=== PATIENT | female | born 1975 | race Caucasian/White ===

== ENCOUNTER → 2021-09-21 15:18 | Outpatient (BNVA) | payer OTHER, SELFPAY | PROVIDERS: Family Provider Family Medicine; Visit Provider Obstetrics & Gynecology | DX: Z01.419 Encounter for gynecological examination (general) (routine) without abnormal findings (principal) | CPT/HCPCS: 87624 ==

== ENCOUNTER 2022-02-16 14:16 | Emergency (ER) | payer OTHER, SELFPAY ==
[2022-02-16 14:23] VITALS: BMI 39.9
[2022-02-16 14:32] VITALS: BP 152/91; PULSE 87; RESP 18; TEMP 37.1; O2SAT 96
--- NOTE | 2022-02-16 14:37 | ED_ITS ---
HPI - General Adult General: Chief complaint: Skin/Abscess/Foreign Body Stated complaint: sent by pasha for CT Time Seen by Provider: 02/16/22 14:36 History of Present Illness: Patient is a 46-year-old male with a history of hysterectomy, eosinophilic colitis presents the emergency room for concerns of perirectal abscess/mass x 1 week. Patient initially went to see Dr. Delacruz in the office for concerns of vaginal protrusion and mass which she has had from 1 week ago. She first noticed the bump after wiping However, Dr. Delacruz evaluated the patient, she has concerned that this may be a perirectal abscess. Patient was then told to come to the emergency room for further evaluation of symptoms. Patient denies any fever/chills, cough, runny nose sore throat, abdom inal pain. Since patient's diagnosis of eosinophilic colitis, she has had significant diarrhea. Patient follows with [facility]. Onset:1 week ago Duration: 1 week Location:home Severity:moderate Associated symptoms: Deny chest pain, dyspnea, nausea, rash, palpitations or vomiting Review of Systems Const: Denies: fever(s) or chills Eyes: Denies: change in vision ENMT: Denies: mouth pain Card: Denies: chest pain or palpitations Resp: Denies: dyspnea or non-productive cough GI: Reports: other (+gross mass/lesion); Denies: abdominal pain, nausea, vomiting or diarrhea : Denies: dysuria Musc: Denies: extremity pain Skin/Breast: Denies: rash or new lesions Neuro: Denies: weakness in extremities Psych: Reports: other (Normal mood) Grayson/Lymph: Denies: easy bruising PFSH ED PFSH: Medical History No pertinent past medical history neghx: htn, dm, thyroid, dvt/pe PCP: Katheryn Van Surgical History History of arthroscopy 2017---bilateral meniscus repair History of foot surgery 2019--lisfranks fusion History of hysterectomy 2014 bilateral oophorectomy Family History Mother Diabetes Hypertension Father Heart disease Hypercholesteremia Hypertension Daughter Thyroid disease Denies family history of Colon cancer Ovarian cancer Breast cancer Uterine cancer Stroke Social History Smoking and tobacco status: never smoked Physical Exam Const: COMMON NORMALS: alert HENMT: COMMON NORMALS: atraumatic HEAD & SCALP: atraumatic MOUTH: moist mucous membranes not abnormal Eye: COMMON NORMALS: EOMs intact bilaterally and conjunctivae normal CONJUNCTIVA: Yes conjunctivae normal Neck/C-Spine: COMMON NORMALS: full ROM and supple Resp: COMMON NORMALS: normal respiratory effort and clear to auscultation bilaterally AUSCULTATION: clear to auscultation bilaterally Cardio: COMMON NORMALS: regular rate RATE: regular rate GI: COMMON NORMALS: Soft to palpation and non-tender PALPATION: Yes Soft to palpation : OTHER: Exam supervised by Alejandrina: Mild nondistent induration at the vaginal opening close to the anal opening Extremity: COMMON NORMALS: full ROM Neuro: SENSORIUM/ORIENTATION: Yes alert MOTOR EXAM: No Abnormal motor strength present and Other motor observations present (no focal motor deficits) Psych: COMMON NORMALS: speech normal SPEECH: Yes normal speech MOOD & AFFECT: Yes euthymic mood Course Vital Signs: Vital signs: Vital Signs Temperature 98.8 F 02/16/22 14:32 Pulse Rate 87 02/16/22 14:32 Respiratory Rate 18 02/16/22 14:32 Blood Pressure 152/91 02/16/22 14:32 Pulse Oximetry 96 02/16/22 14:32 Oxygen Delivery Me thod 02/16/22 14:32 MDM - General Adult Medical Decision Making Patient is a 46-year-old male with a history of hysterectomy, eosinophilic colitis presents the emergency room for concerns of perirectal abscess/mass x 1 week. On exam, patient was found to have mildly indurated lesion at the vaginal opening in the anal area. Patient has white count 13.[address] showed 28 x 16 x 28 mm lesion in the groin area. I discussed this extensively With Dr. Miranda who recommended antibiotics at this time since patient has had I&D in Dr. Delacruz's office. Dr. Miranda recommend sending patient home with Augmentin and close serial follow-up. I have given patient follow up with our assistant case manager to be seen by our outpatient Dr. Miranda for reassessment of wound. Patient aware of a call from our assistant case manager to schedule for appointment(s) and verbalizes understanding of the importance of following up. Rx augmentin for groin abscess Disposition: Discharge. Patient counseled regarding diagnostic impression, treatment plan. Patient given ED strict return precautions to return for continuation, worsening, or development of new symptoms. Instructed to f/u w/ PC P and Dr. Miranda regarding symptoms today. Patient verbalized understanding. Lab Data : 02/16/22 15:12 02/16/22 15:12 Radiology Impressions Abdomen/Pelvis CT 02/16/22 14:36 IMPRESSION: 1. Discrete fluid collection with enhancing rim in the perineal region, suspicious for an abscess measuring 28 x 16 x 28 mm. No soft tissue gas. Please see discussion above. 2. Nonspecific inguinal lymph nodes measuring up to 12 mm which may be reactive. Laboratory Results WBC 13.2 10^3/uL (4.0-10.0) H 02/16/22 15:12 RBC 4.17 10^6/uL (4.1-5.3) 02/16/22 15:12 Hgb 12.7 g/dL (11.5-15.3) 02/16/22 15:12 Hct 37.8 % (37.0-47.0) 02/16/22 15:12 MCV 90.6 fl (81-99) 02/16/22 15:12 MCH 30.5 pg (28.0-34.0) 02/16/22 15:12 MCHC 33.6 g/dL (30.0-36.0) 02/16/22 15:12 RDW 12.5 % (12.1-15.1) 02/16/22 15:12 Plt Count 362 10^3/cmm (130-400) 02/16/22 15:12 MPV 10.2 fL (7.4-10.4) 02/16/22 15:12 Neut % (Auto) 67.2 % 02/16/22 15:12 Lymph % (Auto) 23.4 % 02/16/22 15:12 Forrest % (Auto) 6.2 % 02/16/22 15:12 Eos % (Auto) 2.5 % 02/16/22 15:12 Baso % (Auto) 0.3 % 02/16/22 15:12 Neut # (Auto) 8.86 10^3/uL (1.8-7.7) H 02/16/22 15:12 Lymph # (Auto) 3.1 10^3/uL (0.8-4.8) 02/16/22 15:12 Forrest # (Auto) 0.8 10^3/uL (0.2-0.9) 02/16/22 15:12 Eos # (Auto) 0.3 10^3/uL (0.0-0.8) 02/16/22 15:12 Baso # (Auto) 0.0 10^3/uL (0.0-0.1) 02/16/22 15:12 Nucleated RBC % (auto) 0 % 02/16/22 15:12 Nucleated RBCs # 0.0 /100WBC 02/16/22 15:12 PT 12.70 SECONDS (12.1-14.9) 02/16/22 15:12 INR 0.92 (0.8-1.2) 02/16/22 15:12 APTT 29.6 SECONDS (23.9-36.7) 02/16/22 15:12 Sodium 134 mmol/L (136-145) L 02/16/22 15:12 Potassium 3.7 mmol/L (3.5-5.1) 02/16/22 15:12 Chloride 99 mmol/L (98-107) 02/16/22 15:12 Carbon Dioxide 25 mmol/L (22-29) 02/16/22 15:12 Anion Gap 13.7 (5-19) 02/16/22 15:12 BUN 15 mg/dL (6-20) 02/16/22 15:12 Creatinine 0.7 mg/dL (0.5-0.9) 02/16/22 15:12 GFR Calculation 90.5 mL/min (90-130) 02/16/22 15:12 Glucose 97 mg/dL (65-115) 02/16/22 15:12 Calculated Osmolality 279 mOsm/kg (285-295) L 02/16/22 15:12 Calcium 9.4 mg/dL (8.5-10.5) 02/16/22 15:12 C-Reactive Protein 24.8 mg/L (0.0-4.9) H 02/16/22 15:12 Imaging Data Other Imaging: Radiologist's impression: [facility] [address] [place] [address] CT Scan Report Signed Patient: Maribel Moore Unit #: [id number] : 1975 Age/Sex: 46 / F ADM Date: 02/16/22 Loc: ER Room/Bed: Attending Dr: Ordering Provider/Ordering MD: Peter Christiansen MD Date of Service: 02/16/22 Procedure(s): CT abdomen pelvis w con* [id number] Accession Number(s): [id number] Report Number: [id number] PROCEDURE INFORMATION: Exam: CT Abdomen And Pelvis With Contrast Exam date and time: 02/16/2022 3:15 PM Age: 46 years old Clinical indication: Mass, lump, or swelling; Other: Perineal; Additional info: Pelvic mass TECHNIQUE: Imaging protocol: Computed tomography of the abdomen and pelvis with contrast. Radiation optimization: All CT scans at this facility use at least one of these dose optimization techniques: automated exposure control; mA and/or kV adjustment per patient size (includes targeted exams where dose is matched to clinical indication); or iterative reconstruction. Contrast material: OMNIPAQUE 350; Contrast volume: 80 ml; Contrast route: INTRAVENOUS (IV);? COMPARISON: pelvic limited [id number] 02/16/2022 1:51 PM RADIATION DOSE METRICS: Total DLP (mGy-cm): 1153.47 FINDINGS: Liver: Normal. No mass. Gallbladder and bile ducts: Normal. No calcified stones. No ductal dilation. Pancreas: Normal. No ductal dilation. Spleen: Normal. No splenomegaly. Adrenal glands: Normal. No mass. Kidneys and ureters: Minimal fullness of right renal pelvis, likely extrarenal renal pelvis variant. No obstructing calculi or perinephric collection. Stomach and bowel: Unremarkable. No obstruction. No mucosal thickening. Appendix: No evidence of appendicitis. Intraperitoneal space: See Reproductive finding. No free air or ascites. Vasculature: No abdominal aortic aneurysm.? Lymph nodes: Nonspecific right inguinal lymph node measuring 12 mm short axis. A few other bilateral nonenlarged inguinal lymph nodes are also present. No enlarged lymph nodes. Urinary bladder: Grossly unremarkable mildly distended urinary bladder. Reproductive: Absent uterus. No cul-de-sac fluid or other peritoneal/retroperitoneal fluid collection. No adnexal region masses. Bones/joints: See Soft tissues finding. Soft tissues: Correlation with transperineal ultrasound exam same day which demonstrated a somewhat discrete area of heterogeneous hypoechogenicity in the midline which is probably adjacent and slightly anterior to the anal region,. An area of no density with enhancing rim is seen on this CT exam in the perineal region slightly anterior to the anal region, measuring 28 mm AP, 16 mm transverse and 28 mm craniocaudad best seen on coronal series 5, image 38 and axial series 3, image 97. There is mild increased soft tissue enhancement adjacent to it suggesting inflammatory response. Most likely this is a perineal abscess. A small hematoma may have similar appearance. No obvious fistulous tract communicating through the skin surface on this exam with limited resolution. No obvious superior extension into the perirectal area or ischial rectal fossa. Communication through the inferior vaginal canal would be difficult to exclude in this setting however.? No soft tissue gas. CT/CT abdomen pelvis w con* [id number] IMPRESSION: 1. Discrete fluid collection with enhancing rim in the perineal region, suspicious for an abscess measuring 28 x 16 x 28 mm.? No soft tissue gas.? Please see discussion above. 2. Nonspecific inguinal lymph nodes measuring up to 12 mm which may be reactive. ? Dictated By: Toby Hoang MD Signed By: Toby Hoang MD Signed Date/Time: 02/16/22 1551 DD/ 1515 Discharge Plan Discharge Patient Disposition: Home Clinical Impression: Abscess of groin Condition: Stable Prescriptions: New amoxicillin-pot clavulanate 875-125 mg tablet 1 tab PO BID 10 Days Qty: 20 0RF No Action cetirizine [Zyrtec] 10 mg tablet 10 mg PO DAILY PRN (Reason: Allergy Symptoms) cholecalciferol (vitamin D3) [Dialyvite Vitamin D] 125 mcg (5,000 unit) capsule 125 mcg PO DAILY bupropion HCl 300 mg tablet extended release 24 hr 300 mg PO DAILY Discharge Orders: Discharge ED (Routine); Ordered 02/16/22 Ordered By: Peter Christiansen Referrals: Mirella Delacruz MD [Primary Care Provider] - Discharge Diet: Advance as tolerated Discharge Activity: Increase activity as tolerated Patient Instructions: Abscess (ED) Activity Restrictions/Additional Instructions: Please take your antibiotics as instructed. Watch out for signs of skin changes/redness, mouth redeness or swelling, nausea/vomiting, diarrhea, blood in the urine or any new or concering complaints. Our assistant case manager will have you follow-up with Dr. Miranda in the next few days for reevaluation fo the lesion. You would be expected to have a phone call with our assistant case manager who will put you on the schedule. You can expect a call from us in the next 2-3 days. If you don't hear from us, call us back in the emergency room at [phone]. 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
[2022-02-16] MEDS: iohexol 350 mg/mL 100 mL Btl IV (15:25)
[2022-02-16 15:33] LABS: Basophils % 0.3 %; Eosinophils # 0.3 10^3/uL (0.0-0.8); Eosinophils % 2.5 %; Hematocrit 37.8 % (37.0-47.0); Hemoglobin 12.7 g/dL (11.5-15.3); Lymphocytes # 3.1 10^3/uL (0.8-4.8); Lymphocytes % 23.4 %; Mean Corpuscular HGB Conc 33.6 g/dL (30.0-36.0); Mean Corpuscular Hemoglobin 30.5 pg (28.0-34.0); Mean Corpuscular Volume 90.6 fl (81-99); Mean Platelet Volume 10.2 fL (7.4-10.4); Monocytes # 0.8 10^3/uL (0.2-0.9); Monocytes % 6.2 %; Neutrophils # 8.86 10^3/uL (1.8-7.7); Neutrophils % 67.2 %; Nucleated Red Blood Cells % 0 %; Platelet Count 362 10^3/cmm (130-400); Red Blood Count 4.17 10^6/uL (4.1-5.3); Red Cell Distribution Width 12.5 % (12.1-15.1); White Blood Count 13.2 10^3/uL (4.0-10.0)
[2022-02-16 16:04] LABS: INR 0.92 (0.8-1.2)
[2022-02-16 16:05] LABS: Partial Thromboplastin Time 29.6 SECONDS (23.9-36.7)
[2022-02-16 16:08] LABS: Anion Gap 13.7 (5-19); Blood Urea Nitrogen 15 mg/dL (6-20); C Reactive Protein 24.8 mg/L (0.0-4.9); Calcium 9.4 mg/dL (8.5-10.5); Carbon Dioxide 25 mmol/L (22-29); Chloride 99 mmol/L (98-107); Creatinine Clr Calc Pharmacy 133.3439; Glomerular Filtration Rate 90.5 mL/min (90-130); Glucose 97 mg/dL (65-115); Osmolality Calculated 279 mOsm/kg (285-295); Potassium 3.7 mmol/L (3.5-5.1); Sodium 134 mmol/L (136-145)
[2022-02-16 17:20] VITALS: BP 144/85; PULSE 87; RESP 15; TEMP 37.1; O2SAT 98
--- NOTE | 2022-02-19 11:38 | DCPLANNER ---
Addendum entered by Dot Grant 04/30/22 15:25: Patient had a follow up appointment scheduled with general surgery - patient did attend appointment. Addendum entered by Dot Grant 02/20/22 06:00: Patient has a follow up appointment scheduled for Sunday, February 27, 2022 at 9:[address] Miranda at general surgery. Clinic will call patient with appointment information. Original Note: sawmill manager had message to schedule a follow up appointment for patient with general surgery. sawmill manager sent patients information to the front office staff at general surgery. Patients information will be printed and reviewed. Clinic will call patient with appointment information.
== END 2022-02-16 17:22 | disposition home or self-care (01) ==
PROVIDERS: Emergency Provider Emergency Medicine; PCP Obstetrics & Gynecology
DX: L02.214 Cutaneous abscess of groin (principal)
CPT/HCPCS: 74177; 76857; 80048; 85025; 85610; 85730; 86140; 87070; 87205; 99285; Q9967